=== PATIENT | female | born 1985 | race Caucasian/White ===

== ENCOUNTER 2016-04-08 20:48 | Emergency (ER) | payer MEDICAID ==
[~2016-04-08] VITALS: Ht 154.9 cm; Wt 85.7 kg
[~2016-04-08 20:48] MED LIST: DOXYCYCLINE; NORE5TAB6 PO
[2016-04-08 21:05] VITALS: BP 136/85; PULSE 84; RESP 18; TEMP 97.7; O2SAT 96
[2016-04-08] MEDS ORDERED: ONDANSETRON HCL 4 MG/2 ML VIAL IVP ONE (23:00)
[2016-04-08] MEDS ORDERED: KETOROLAC TROMETHAMINE 30 MG VIAL IVP ONE (23:00)
[2016-04-08] MEDS ORDERED: NACL 0.9% 1,000 ML IV ONE (23:00)
[2016-04-08 23:35] LABS: BILIRUBIN,URINE NEGATIVE (NEGATIVE); BLOOD, URINE NEGATIVE (NEGATIVE); CLARITY/URINE HAZY (CLEAR); COLOR,URINE YELLOW (YELLOW); GLUCOSE,URINE NEGATIVE (NEGATIVE); KETONES,URINE NEGATIVE (NEGATIVE); LEUKOCYTE ESTERASE ,URINE NEGATIVE (NEGATIVE); NITRITE, URINE NEGATIVE (NEGATIVE); PH,URINE 7.5 (5.0-8.0); PROTEIN URINE NEGATIVE (NEGATIVE); UROBILINOGEN,URINE 0.2 (0.2-1.0)
[2016-04-08 23:53] LABS: CALCIUM 9.3 mg/dL (8.4-11.0); CREATININE 0.72 mg/dL (0.55-1.30); POTASSIUM 3.7 mmol/L (3.5-5.1)
[2016-04-08 23:59] LABS: ALBUMIN 4.1 g/dL (3.4-4.8); TOTAL BILIRUBIN 0.3 mg/dL (0.0-1.0); TOTAL PROTEIN, SERUM 8.3 g/dL (6.4-8.3)
[2016-04-09 00:03] LABS: HEMATOCRIT 45.2 % (36-48); MEAN CORPUSCULAR HEMOGLOBIN 31 pg (27-31); MEAN CORPUSCULAR HGB CONC 33 % (32-36); MEAN CORPUSCULAR VOLUME 93 fL (79.0-98.0); NEUTROPHILS % (AUTO) 62.9 % (40.0-70.0); PLATELET COUNT (AUTO) 341 K/uL (130-430); RED BLOOD CELL COUNT(AUTO) 4.88 MIL/uL (4.2-6.2); RED CELL DISTRIBUTION WIDTH 13.5 % (9.0-15.0); WHITE BLOOD COUNT (AUTO) 11.9 K/uL (4.8-10.8)
[2016-04-09 00:04] LABS: BASOPHILS # (AUTO) 0.2 K/uL (0.0-0.2); EOSINOPHILS # (AUTO) 0.1 K/uL (0.0-0.4); EOSINOPHILS % (AUTO) 0.8 % (0.0-4.0); LYMPHOCYTES # (AUTO) 3.4 K/uL (1.0-5.5); LYMPHOCYTES % (AUTO) 28.9 % (20.5-51.5); MONOCYTES # (AUTO) 0.6 K/uL (0.0-1.0); MONOCYTES % (AUTO) 5.4 % (1.7-9.3); NEUTROPHILS # (AUTO) 7.6 K/uL (1.8-7.7)
[2016-04-09] MEDS ORDERED: DIPHENHYDRAMINE INJ 50 MG/ML VIAL IVP ONE (01:00)
[2016-04-09] MEDS ORDERED: MORPHINE 4 MG/ML INJ. SYRINGE IVP ONE (01:00)
[2016-04-09 01:20] VITALS: BP 133/78; PULSE 84; RESP 18; TEMP 97.9; O2SAT 98
== END 2016-04-09 01:20 | disposition home or self-care (01) ==
LOC: SED 20:48
DX: R10.11 Right upper quadrant pain (principal); F41.9 Anxiety disorder, unspecified
CPT/HCPCS: 36415; 76700; 80053; 81003; 83690; 85025; 96361; 96374; 96375; 99285; J1885; J2405; J7030; J1200; J2270

== ENCOUNTER 2017-09-10 09:09 | Emergency (ER) | payer MEDICAID ==
[~2017-09-10] VITALS: Ht 154.9 cm; Wt 90.7 kg
[~2017-09-10 09:09] MED LIST changes: -NORE5TAB6 PO
[2017-09-10 09:16] VITALS: BP_SYST 130
[2017-09-10] MEDS ORDERED: KETOROLAC TROMETHAMINE 60 MG/2 ML VIAL IM ONE (09:30)
[2017-09-10 09:40] LABS: BILIRUBIN,URINE NEGATIVE (NEGATIVE); BLOOD, URINE NEGATIVE (NEGATIVE); CLARITY/URINE CLEAR (CLEAR); COLOR,URINE YELLOW (YELLOW); GLUCOSE,URINE NEGATIVE (NEGATIVE); KETONES,URINE NEGATIVE (NEGATIVE); LEUKOCYTE ESTERASE ,URINE 1+ (NEGATIVE); NITRITE, URINE NEGATIVE (NEGATIVE); PROTEIN URINE NEGATIVE (NEGATIVE); UROBILINOGEN,URINE 0.2 (0.2-1.0)
[2017-09-10 09:48] LABS: RBC,URINE 0-3 /HPF (0-3)
[2017-09-10 09:49] LABS: BACTERIA,URINE FEW /HPF (None Seen); MUCUS,URINE None Seen /LPF (None Seen)
[2017-09-10 09:51] LABS: BASOPHILS # (AUTO) 0.1 K/uL (0.0-0.2); BASOPHILS % (AUTO) 0.6 % (0.0-2.0); CALCIUM 9.1 mg/dL (8.4-11.0); CREATININE 0.79 mg/dL (0.55-1.30); EOSINOPHILS # (AUTO) 0.1 K/uL (0.0-0.4); EOSINOPHILS % (AUTO) 1.1 % (0.0-4.0); HEMATOCRIT 41.3 % (36-48); HEMOGLOBIN 14.2 g/dL (12.0-16.0); LYMPHOCYTES % (AUTO) 19.7 % (20.5-51.5); MEAN CORPUSCULAR HEMOGLOBIN 31 pg (27-31); MEAN CORPUSCULAR HGB CONC 34 % (32-36); MEAN CORPUSCULAR VOLUME 91 fL (79.0-98.0); MONOCYTES # (AUTO) 0.5 K/uL (0.0-1.0); MONOCYTES % (AUTO) 5.1 % (1.7-9.3); NEUTROPHILS # (AUTO) 7.6 K/uL (1.8-7.7); NEUTROPHILS % (AUTO) 73.5 % (40.0-70.0); PLATELET COUNT (AUTO) 344 K/uL (130-430); POTASSIUM 4.2 mmol/L (3.5-5.1); RED BLOOD CELL COUNT(AUTO) 4.54 MIL/uL (4.2-6.2); RED CELL DISTRIBUTION WIDTH 13.7 % (9.0-15.0); WHITE BLOOD COUNT (AUTO) 10.3 K/uL (4.8-10.8)
[2017-09-10 09:55] LABS: ALBUMIN 3.6 g/dL (3.4-4.8); TOTAL BILIRUBIN 0.3 mg/dL (0.0-1.0)
[2017-09-10 10:21] VITALS: BP_SYST 133
== END 2017-09-10 10:17 | disposition home or self-care (01) ==
LOC: SED 09:09
DX: N39.0 Urinary tract infection, site not specified (principal); F41.9 Anxiety disorder, unspecified
CPT/HCPCS: 36415; 80053; 85025; 81000; 81025; 83690; 87086; 96372; 99284; J1885

== ENCOUNTER 2017-11-02 08:17 | Emergency (ER) | payer SELFPAY ==
[~2017-11-02] VITALS: Ht 154.9 cm; Wt 90.7 kg
[2017-11-02 08:17] VITALS: BP_SYST 143
[2017-11-02] MEDS ORDERED: KETOROLAC TROMETHAMINE 15 MG VIAL IM ONE (08:45)
[2017-11-02] MEDS ORDERED: traMADol HCL HCL 50 MG TABLET (ULTRAM) PO ONE (09:30)
[2017-11-02 09:36] LABS: BILIRUBIN,URINE NEGATIVE (NEGATIVE); BLOOD, URINE NEGATIVE (NEGATIVE); CLARITY/URINE HAZY (CLEAR); COLOR,URINE YELLOW (YELLOW); GLUCOSE,URINE NEGATIVE (NEGATIVE); KETONES,URINE NEGATIVE (NEGATIVE); LEUKOCYTE ESTERASE ,URINE 1+ (NEGATIVE); NITRITE, URINE NEGATIVE (NEGATIVE); PROTEIN URINE NEGATIVE (NEGATIVE); UROBILINOGEN,URINE 0.2 (0.2-1.0)
[2017-11-02 10:09] LABS: RBC,URINE 0-3 /HPF (0-3)
[2017-11-02 10:10] LABS: BACTERIA,URINE MODERATE /HPF (None Seen); MUCUS,URINE 1+ /LPF (None Seen)
[2017-11-02 10:40] VITALS: BP_SYST 143
== END 2017-11-02 10:39 | disposition home or self-care (01) ==
LOC: SED 08:17
DX: N39.0 Urinary tract infection, site not specified (principal); D25.9 Leiomyoma of uterus, unspecified; F41.9 Anxiety disorder, unspecified; Z87.42 Personal history of other diseases of the female genital tract
CPT/HCPCS: 76830; 76857; 81000; 81025; 87086; 96372; 99285; J1885

== ENCOUNTER 2018-04-06 18:05 | Emergency (ER) | payer SELFPAY ==
[~2018-04-06] VITALS: Ht 154.9 cm; Wt 86.2 kg
[2018-04-06 18:13] VITALS: BP_SYST 147
[2018-04-06 18:33] LABS: BILIRUBIN,URINE NEGATIVE (NEGATIVE); BLOOD, URINE NEGATIVE (NEGATIVE); CLARITY/URINE CLEAR (CLEAR); COLOR,URINE YELLOW (YELLOW); GLUCOSE,URINE NEGATIVE (NEGATIVE); KETONES,URINE 1+ (NEGATIVE); LEUKOCYTE ESTERASE ,URINE TRACE (NEGATIVE); NITRITE, URINE NEGATIVE (NEGATIVE); PROTEIN URINE NEGATIVE (NEGATIVE); UROBILINOGEN,URINE 0.2 (0.2-1.0)
[2018-04-06 18:41] LABS: BACTERIA,URINE FEW /HPF (None Seen); MUCUS,URINE 1+ /LPF (None Seen); RBC,URINE 0-3 /HPF (0-3)
[2018-04-06] MEDS ORDERED: KETOROLAC TROMETHAMINE 30 MG VIAL IM ONE (20:15)
[2018-04-06 21:28] VITALS: BP_SYST 132
== END 2018-04-06 21:28 | disposition home or self-care (01) ==
LOC: SED 18:05
DX: S20.212A Contusion of left front wall of thorax, initial encounter (principal); F41.9 Anxiety disorder, unspecified; R03.0 Elevated blood-pressure reading, without diagnosis of hypertension; X58.XXXA Exposure to other specified factors, initial encounter; Y93.89 Activity, other specified; Y92.89 Other specified places as the place of occurrence of the external cause; Y99.8 Other external cause status
CPT/HCPCS: 36415; 71100; 71250; 81000; 81025; 85379; 87086; 96372; 99284; J1885

== ENCOUNTER 2018-05-02 12:16 | Emergency (ER) | payer SELFPAY ==
[~2018-05-02] VITALS: Ht 154.9 cm; Wt 88.0 kg
[2018-05-02 12:21] VITALS: BP_SYST 146
--- NOTE | 2018-05-02 12:39 | NUR ---
Patient to ER bed 1 to gown for evaluation. Side rails up. Report given to Jm AN.
--- NOTE | 2018-05-02 12:40 | NUR ---
Pt is here for c/o feeling "something stuck" in back of throat since Tuesday. Pt is able to swallow water, no throat swelling noted, back of throat has mild redness, no exudate noted. Pt denied fever or any other symptoms, pain is about 4-5/10 per pt.
--- NOTE | 2018-05-02 12:41 | NUR ---
at bedside to assess pt.
[2018-05-02] MEDS ORDERED: MAG HYDROX/AL HYDROX/SIMETH 30 ML, BELLADONNA ALKALOIDS/PHENOBARB 10 ML, LIDOCAINE VISC... PO ONE ×3 (13:45)
[2018-05-02] MEDS ORDERED: DEXAMETHASONE SOD PHOSPHATE 10 MG/ML VIAL IM ONE (14:00)
--- NOTE | 2018-05-02 14:00 | NUR ---
Pt was given medication, states it is not helping her, O2 sat RA is 97 %, respirations even and unlabored. THERAPEUTIC RECREATION LEADER aware.
[2018-05-02 15:20] VITALS: BP_SYST 117
--- NOTE | 2018-05-02 15:20 | NUR ---
Patient given written and verbal discharge instructions and verbalizes understanding. ER MD discussed with patient the results and treatment provided. Patient in stable condition. ID arm band removed. Rx of Prednisone and motrin given. Patient educated on pain management and to follow up with PMD. Opportunity for questions provided and answered. Medication side effect fact sheet provided.
== END 2018-05-02 15:20 | disposition home or self-care (01) ==
LOC: SED 12:16
DX: J02.8 Acute pharyngitis due to other specified organisms (principal); B97.89 Other viral agents as the cause of diseases classified elsewhere; R03.0 Elevated blood-pressure reading, without diagnosis of hypertension; F45.8 Other somatoform disorders; F41.9 Anxiety disorder, unspecified
CPT/HCPCS: 36415; 70360; 86403; 87081; 96372; 99284; J1100; J2001

== ENCOUNTER → 2020-10-24 | Emergency (ER) | payer OTHER ==
[~2020-10-24] VITALS: Ht 154.9 cm; Wt 101.6 kg
[2020-10-24 11:35] VITALS: BP_SYST 140
--- NOTE | 2020-10-24 11:35 | NUR ---
AFTER BEING TRIAGED, PT ASKED ABOUT COVID PTS AND DECIDED SHE DID NOT WANT TO BE SEEN. EXPLAINED THAT COVID PTS ARE EVERYWHERE, PT DECIDED TO LEAVE WITHOUT BEING SEEN
== END | disposition left against medical advice (07) ==
LOC: SED 11:35
DX: N64.4 Mastodynia (principal); Z53.21 Procedure and treatment not carried out due to patient leaving prior to being seen by health care provider

== ENCOUNTER 2021-04-13 12:14 | Emergency (ER) | payer OTHER, SELFPAY ==
[~2021-04-13] VITALS: Ht 154.9 cm; Wt 99.8 kg
[2021-04-13 12:50] VITALS: BP_SYST 147
[2021-04-13] MEDS ORDERED: MAG HYDROX/AL HYDROX/SIMETH 30 ML, DICYCLOMINE HCL 20 MG, LIDOCAINE VISCOUS 2% 15ML (PO... PO ONE ×3 (13:45)
--- NOTE | 2021-04-13 13:56 | NUR ---
Pt in Bed 5 gowned with at bedside. pt is A&Ox4. Ambulatory with steady gait. No chest pain and no sob. Pt c/o LUQ pain since New Years. Rates pain 6/10 and does not radiate. Scheduled medications given. Ambulatory with steady gait.
[2021-04-13 14:27] LABS: BILIRUBIN,URINE NEGATIVE (NEGATIVE); BLOOD, URINE NEGATIVE (NEGATIVE); COLOR,URINE YELLOW (YELLOW); GLUCOSE,URINE NEGATIVE (NEGATIVE); KETONES,URINE NEGATIVE (NEGATIVE); LEUKOCYTE ESTERASE ,URINE NEGATIVE (NEGATIVE); NITRITE, URINE NEGATIVE (NEGATIVE); PROTEIN URINE NEGATIVE (NEGATIVE)
[2021-04-13 14:34] LABS: CLARITY/URINE SLIGHTLY HAZY (CLEAR)
[2021-04-13 15:05] LABS: BASOPHILS # (AUTO) 0.1 K/uL (0.0-0.2); BASOPHILS % (AUTO) 0.9 % (0.0-2.0); EOSINOPHILS # (AUTO) 0.1 K/uL (0.0-0.4); EOSINOPHILS % (AUTO) 1.5 % (0.0-4.0); HEMATOCRIT 35.2 % (36-48); LYMPHOCYTES # (AUTO) 1.7 K/uL (1.0-5.5); MEAN CORPUSCULAR HEMOGLOBIN 24 pg (27-31); MEAN CORPUSCULAR HGB CONC 31 % (32-36); MEAN CORPUSCULAR VOLUME 79 fL (79.0-98.0); MONOCYTES # (AUTO) 0.4 K/uL (0.0-1.0); MONOCYTES % (AUTO) 5.1 % (1.7-9.3); NEUTROPHILS # (AUTO) 5.6 K/uL (1.8-7.7); NEUTROPHILS % (AUTO) 71.5 % (40.0-70.0); PLATELET COUNT (AUTO) 315 K/uL (130-430); RED BLOOD CELL COUNT(AUTO) 4.48 MIL/uL (4.2-6.2); RED CELL DISTRIBUTION WIDTH 21.8 % (9.0-15.0); WHITE BLOOD COUNT (AUTO) 7.9 K/uL (4.8-10.8)
--- NOTE | 2021-04-13 15:17 | NUR ---
Pt moved to Hallway 1. Pt has no c/o. A&Ox4. Ambulatory with steady gait. VSS.
[2021-04-13 15:20] LABS: CALCIUM 9.2 mg/dL (8.4-11.0); CREATININE 0.5 mg/dL (0.55-1.30)
[2021-04-13 15:34] LABS: ALBUMIN 3.9 g/dL (3.4-4.8); TOTAL BILIRUBIN 0.3 mg/dL (0.0-1.0)
--- NOTE | 2021-04-13 16:00 | NUR ---
ER physician assessing pt.
[2021-04-13] MEDS ORDERED: MAG-AL HYDROX/SIMETH 30 ML UDC PO ONE (17:00)
[2021-04-13] MEDS ORDERED: FAMOTIDINE 20 MG TABLET PO ONE (17:00)
[2021-04-13] MEDS ORDERED: ANT30 PO (17:07)
[2021-04-13] MEDS ORDERED: FAMO40TA7 PO (17:07)
[2021-04-13 17:21] VITALS: BP_SYST 132
--- NOTE | 2021-04-13 17:22 | NUR ---
Patient given written and verbal discharge instructions and verbalizes understanding. ER MD discussed with patient the results and treatment provided. Patient in stable condition. ID arm band removed. Rx of Famotidine and MAAlox given. Patient educated on pain management and to follow up with PMD. Pain Scale . Opportunity for questions provided and answered. Medication side effect fact sheet provided.
== END 2021-04-13 17:21 | disposition home or self-care (01) ==
LOC: SED 12:14
DX: R10.12 Left upper quadrant pain (principal); Z79.899 Other long term (current) drug therapy
CPT/HCPCS: 36415; 80053; 81003; 81025; 83690; 84702; 85025; 99284; J2001

== ENCOUNTER 2021-11-28 07:44 | Emergency (ER) | payer OTHER ==
[~2021-11-28] VITALS: Ht 154.9 cm; Wt 80.7 kg
[~2021-11-28 07:44] MED LIST changes: +ANT30 PO; +FAMO40TA7 PO; +HYDR-3917 PO; +IBUP-1969 PO
[2021-11-28 07:47] VITALS: BP_SYST 118
--- NOTE | 2021-11-28 07:55 | NUR ---
Placed in room 4 . Placed on monitor tech, blood pressure machine and pulse oximeter. To gown for exam. Side rails up. Report given to NATALIYA GTZ.
--- NOTE | 2021-11-28 08:27 | NUR ---
AT THE BEDSIDE WITH DR LONG FOR RECTAL EXAMINATION, PT TOLERATED WELL
[2021-11-28] MEDS ORDERED: NACL 0.9% 1,000 ML IV ONE (08:30)
[2021-11-28] MEDS ORDERED: KETOROLAC TROMETHAMINE 30 MG VIAL IVP ONE (08:30)
[2021-11-28 09:21] LABS: BASOPHILS # (AUTO) 0.1 K/uL (0.0-0.2); BASOPHILS % (AUTO) 0.7 % (0.0-2.0); EOSINOPHILS # (AUTO) 0.2 K/uL (0.0-0.4); HEMATOCRIT 27.5 % (36-48); LYMPHOCYTES # (AUTO) 1.6 K/uL (1.0-5.5); LYMPHOCYTES % (AUTO) 19.6 % (20.5-51.5); MEAN CORPUSCULAR VOLUME 67 fL (79.0-98.0); MONOCYTES # (AUTO) 0.4 K/uL (0.0-1.0); NEUTROPHILS # (AUTO) 6.1 K/uL (1.8-7.7); NEUTROPHILS % (AUTO) 72.7 % (40.0-70.0); PLATELET COUNT (AUTO) 341 K/uL (130-430); RED BLOOD CELL COUNT(AUTO) 4.13 MIL/uL (4.2-6.2); RED CELL DISTRIBUTION WIDTH 18.2 % (9.0-15.0); WHITE BLOOD COUNT (AUTO) 8.3 K/uL (4.8-10.8)
[2021-11-28 09:36] LABS: CALCIUM 9.2 mg/dL (8.4-11.0); CREATININE 0.57 mg/dL (0.55-1.30); POTASSIUM 3.7 mmol/L (3.5-5.1)
[2021-11-28 09:41] LABS: ALBUMIN 3.3 g/dL (3.4-4.8); TOTAL BILIRUBIN 0.4 mg/dL (0.0-1.0)
[2021-11-28] MEDS ORDERED: MAGNESIUM CITRATE 300 ML ORAL SOLUTION PO ONE (11:00)
[2021-11-28] MEDS ORDERED: TRAM50TA2 PO (12:15)
[2021-11-28] MEDS ORDERED: LACT10SO6 PO (12:17)
--- NOTE | 2021-11-28 12:22 | NUR ---
Patient was seen by physician and all meds were given. Patient with IV fluids given and medications afterward. Patient stable and awaiting discharge at this time.
--- NOTE | 2021-11-28 12:31 | NUR ---
Patient given written and verbal discharge instructions and verbalizes understanding. ER MD discussed with patient the results and treatment provided. Patient in stable condition. ID arm band removed. IV catheter removed intact and dressing applied, no active bleeding. Rx of given. Patient educated on pain management and to follow up with PMD. Pain Scale 0/10. Opportunity for questions provided and answered. Medication side effect fact sheet provided.
[2021-11-28 13:01] VITALS: BP_SYST 130
--- NOTE | 2021-11-28 13:03 | NUR ---
Patient given written and verbal discharge instructions and verbalizes understanding. ER MD discussed with patient the results and treatment provided. Patient in stable condition. ID arm band removed. IV catheter removed intact and dressing applied, no active bleeding. Rx of lactulose and tramadol given. Patient educated on pain management and to follow up with PMD. Pain Scale. Opportunity for questions provided and answered. Medication side effect fact sheet provided.
== END 2021-11-28 13:01 | disposition home or self-care (01) ==
LOC: SED 07:44
DX: K62.5 Hemorrhage of anus and rectum (principal); K59.00 Constipation, unspecified; Z79.899 Other long term (current) drug therapy
CPT/HCPCS: 99284; 74176; 96374; 96361; 80053; 85025; 36415; 76376; 81025; J1885; J7030

== ENCOUNTER 2022-07-17 13:26 | Emergency (ER) | payer MEDICAID, OTHER ==
[~2022-07-17] VITALS: Ht 154.9 cm; Wt 79.8 kg
[~2022-07-17 13:26] MED LIST changes: +LACT10SO6 PO; +TRAM50TA2 PO
[2022-07-17 13:33] VITALS: BP_SYST 135
--- NOTE | 2022-07-17 13:39 | NUR ---
PT BIB SELF WITH C/O RIGHT 5TH DIGIT PAIN WITH ECCYMOSIS AND SWELLING. PT HAS A DRESSER DRAWER DROPPED ON HER FOOT. PT TRIAGED AND PLACED IN ROOM 8, REPORT GIVEN TO NATALIYA CHIRINOS.
[2022-07-17] MEDS ORDERED: KETOROLAC TROMETHAMINE 60 MG/2 ML VIAL IM ONE (13:45)
--- NOTE | 2022-07-17 13:45 | NUR ---
MD DR ESTES AT BEDSIDE
[2022-07-17] MEDS ORDERED: TRAM50TA2 PO (14:42)
[2022-07-17] MEDS ORDERED: IBUP-1969 PO (14:42)
[2022-07-17 15:10] VITALS: BP_SYST 135
--- NOTE | 2022-07-17 15:12 | NUR ---
Patient given written and verbal discharge instructions and verbalizes understanding. ER MD DR ESTES discussed with patient the results and treatment provided. Patient in stable condition. ID arm band removed. Rx of TRAMADOL AND MOTRIN given. Patient educated on pain management and to follow up with PMD. Pain Scale 2/10. Opportunity for questions provided and answered. Medication side effect fact sheet provided.
== END 2022-07-17 15:12 | disposition home or self-care (01) ==
LOC: SED 13:26
DX: S92.422A Displaced fracture of distal phalanx of left great toe, initial encounter for closed fracture (principal); Z79.899 Other long term (current) drug therapy; W22.8XXA Striking against or struck by other objects, initial encounter; Y93.89 Activity, other specified; Y92.89 Other specified places as the place of occurrence of the external cause; Y99.8 Other external cause status
CPT/HCPCS: 99283; 73660; 96372; J1885

== ENCOUNTER 2022-07-25 10:27 | Emergency (ER) | payer MEDICAID ==
[~2022-07-25] VITALS: Ht 154.9 cm; Wt 79.8 kg
[2022-07-25 10:35] VITALS: BP_SYST 146
[2022-07-25] MEDS ORDERED: KETOROLAC TROMETHAMINE 30 MG VIAL IM ONE (10:45)
[2022-07-25 11:10] LABS: BASOPHILS # (AUTO) 0.1 K/uL (0.0-0.2); BASOPHILS % (AUTO) 0.9 % (0.0-2.0); EOSINOPHILS # (AUTO) 0.1 K/uL (0.0-0.4); EOSINOPHILS % (AUTO) 1.8 % (0.0-4.0); HEMATOCRIT 30.2 % (36-48); HEMOGLOBIN 9.2 g/dL (12.0-16.0); LYMPHOCYTES % (AUTO) 25.6 % (20.5-51.5); MEAN CORPUSCULAR HEMOGLOBIN 22 pg (27-31); MEAN CORPUSCULAR HGB CONC 31 % (32-36); MEAN CORPUSCULAR VOLUME 72 fL (79.0-98.0); MONOCYTES # (AUTO) 0.4 K/uL (0.0-1.0); MONOCYTES % (AUTO) 5.4 % (1.7-9.3); NEUTROPHILS # (AUTO) 5.2 K/uL (1.8-7.7); NEUTROPHILS % (AUTO) 66.3 % (40.0-70.0); PLATELET COUNT (AUTO) 384 K/uL (130-430); RED BLOOD CELL COUNT(AUTO) 4.18 MIL/uL (4.2-6.2); RED CELL DISTRIBUTION WIDTH 18.7 % (9.0-15.0); WHITE BLOOD COUNT (AUTO) 7.8 K/uL (4.8-10.8)
[2022-07-25 11:31] LABS: CALCIUM 8.2 mg/dL (8.4-11.0); CREATININE 0.67 mg/dL (0.55-1.30)
[2022-07-25 11:36] LABS: ALBUMIN 3.5 g/dL (3.4-4.8); TOTAL BILIRUBIN 0.2 mg/dL (0.0-1.0)
[2022-07-25 13:10] LABS: CLARITY/URINE CLEAR (CLEAR); COLOR,URINE YELLOW (YELLOW); GLUCOSE,URINE NEGATIVE (NEGATIVE); KETONES,URINE NEGATIVE (NEGATIVE); PROTEIN URINE NEGATIVE (NEGATIVE)
[2022-07-25 13:11] LABS: BILIRUBIN,URINE NEGATIVE (NEGATIVE); BLOOD, URINE NEGATIVE (NEGATIVE); LEUKOCYTE ESTERASE ,URINE NEGATIVE (NEGATIVE); NITRITE, URINE NEGATIVE (NEGATIVE); UROBILINOGEN,URINE 0.2 (0.2-1.0)
[2022-07-25] MEDS ORDERED: IBUP-1969 PO (13:21)
[2022-07-25 13:42] VITALS: BP_SYST 118
== END 2022-07-25 13:40 | disposition home or self-care (01) ==
LOC: SED 10:27
DX: D25.9 Leiomyoma of uterus, unspecified (principal); R10.2 Pelvic and perineal pain; N88.8 Other specified noninflammatory disorders of cervix uteri; D50.9 Iron deficiency anemia, unspecified; R68.83 Chills (without fever); Z79.899 Other long term (current) drug therapy
CPT/HCPCS: 36415; 76856-TC; 80053; 81003; 81025; 85025; 96372; 99285

== ENCOUNTER 2022-08-24 12:10 | Emergency (ER) | payer MEDICAID ==
[~2022-08-24] VITALS: Ht 154.9 cm; Wt 75.7 kg
[2022-08-24 12:31] VITALS: BP_SYST 149
[2022-08-24] MEDS ORDERED: KETOROLAC TROMETHAMINE 60 MG/2 ML VIAL IM ONE (12:45)
[2022-08-24 13:27] LABS: BILIRUBIN,URINE NEGATIVE (NEGATIVE); BLOOD, URINE 3+ (NEGATIVE); CLARITY/URINE TURBID (CLEAR); COLOR,URINE YELLOW (YELLOW); GLUCOSE,URINE NEGATIVE (NEGATIVE); KETONES,URINE NEGATIVE (NEGATIVE); LEUKOCYTE ESTERASE ,URINE NEGATIVE (NEGATIVE); NITRITE, URINE NEGATIVE (NEGATIVE); PH,URINE 6.5 (5.0-8.0); PROTEIN URINE 2+ (NEGATIVE); UROBILINOGEN,URINE 0.2 (0.2-1.0)
[2022-08-24 13:34] LABS: BACTERIA,URINE FEW /HPF (None Seen); RBC,URINE 80-100 /HPF (0-3); WBC,URINE 0-3 /HPF (0-3)
[2022-08-24] MEDS ORDERED: MORPHINE 4 MG INJ. 4 MG/ML VIAL IM ONE (13:45)
[2022-08-24] MEDS ORDERED: KETAMINE HCL IN 0.9 % NACL 50 MG/5 ML SYRINGE IV ONE (13:45)
[2022-08-24] MEDS ORDERED: HYDR-3917 PO (13:57)
[2022-08-24] MEDS ORDERED: IBUP-1969 PO (14:12)
[2022-08-24 14:46] VITALS: BP_SYST 133
== END 2022-08-24 14:46 | disposition home or self-care (01) ==
LOC: SED 12:10
DX: D21.9 Benign neoplasm of connective and other soft tissue, unspecified (principal); R10.2 Pelvic and perineal pain; R10.30 Lower abdominal pain, unspecified; Z79.899 Other long term (current) drug therapy
CPT/HCPCS: 99284; 81000; 81025; 96372; J1885; J2270

== ENCOUNTER 2022-09-15 10:45 | Emergency (ER) | payer OTHER, MEDICAID ==
[~2022-09-15] VITALS: Ht 167.6 cm; Wt 72.6 kg
[2022-09-15 10:56] VITALS: BP_SYST 133; PULSE 85; RESP 20; TEMP 98.3; O2SAT 98
--- NOTE | 2022-09-15 11:00 | NUR ---
Pt brought by self, A&Ox4, pt presents to ER with headache and abrassions on R leg , pt states she was catching her truck since it went down the driveway, hit head and R leg, poss KO, skin pink and warm,cap refill <3, VSS
--- NOTE | 2022-09-15 11:20 | NUR ---
Dr Vasques evaluating patient at bedside
[2022-09-15] MEDS ORDERED: TRAM50TA2 PO (13:17)
[2022-09-15] MEDS ORDERED: IBUP-1969 PO (13:17)
[2022-09-15 13:36] VITALS: BP_SYST 133; PULSE 85; RESP 20; TEMP 98.3; O2SAT 98
--- NOTE | 2022-09-15 13:37 | NUR ---
Patient given written and verbal discharge instructions and verbalizes understanding. ER MD discussed with patient the results and treatment provided. Patient in stable condition. ID arm band removed. Rx of IBUPROFEN AND TRAMADOL given. Patient educated on pain management and to follow up with PMD. Pain Scale 0/10. Opportunity for questions provided and answered. Medication side effect fact sheet provided.
== END 2022-09-15 13:37 | disposition home or self-care (01) ==
LOC: SED 10:45
DX: S33.5XXA Sprain of ligaments of lumbar spine, initial encounter (principal); S00.03XA Contusion of scalp, initial encounter; Z79.899 Other long term (current) drug therapy; W19.XXXA Unspecified fall, initial encounter; Y93.89 Activity, other specified; Y92.89 Other specified places as the place of occurrence of the external cause; Y99.8 Other external cause status
CPT/HCPCS: 70450-TC; 72100-TC; 76376; 81025; 99284

== ENCOUNTER 2024-01-12 18:49 | Emergency (ER) | payer MEDICAID ==
[~2024-01-12] VITALS: Ht 154.9 cm; Wt 89.8 kg
[~2024-01-12 18:49] MED LIST changes: +CEPH-548 PO
[2024-01-12 19:16] VITALS: BP_SYST 137; PULSE 90; RESP 18; TEMP 97.3; O2SAT 96
[2024-01-12] MEDS: MAG HYDROX/AL HYDROX/SIMETH 30 ML, DICYCLOMINE HCL 20 MG, LIDOCAINE VISCOUS 2% 15ML (PO... PO ONE (19:31)
[2024-01-12] MEDS: PANTOPRAZOLE SODIUM 40 MG TAB PO ONE (19:31)
[2024-01-12 19:32] LABS: BILIRUBIN,URINE NEGATIVE (NEGATIVE); BLOOD, URINE 3+ (NEGATIVE); COLOR,URINE YELLOW (YELLOW); GLUCOSE,URINE NEGATIVE (NEGATIVE); KETONES,URINE NEGATIVE (NEGATIVE); LEUKOCYTE ESTERASE ,URINE NEGATIVE (NEGATIVE); NITRITE, URINE NEGATIVE (NEGATIVE); PROTEIN URINE TRACE (NEGATIVE); UROBILINOGEN,URINE 0.2 (0.2-1.0)
[2024-01-12 19:39] LABS: CLARITY/URINE SLIGHTLY HAZY (CLEAR)
[2024-01-12 19:40] LABS: BACTERIA,URINE FEW /HPF (None Seen); RBC,URINE 20-50 /HPF (0-3); WBC,URINE 0-3 /HPF (0-3)
[2024-01-12 19:41] LABS: MUCUS,URINE None Seen /LPF (None Seen)
[2024-01-12 19:41] LABS: BASOPHILS # (AUTO) 0.1 K/uL (0.0-0.2); EOSINOPHILS # (AUTO) 0.3 K/uL (0.0-0.4); EOSINOPHILS % (AUTO) 3.6 % (0.0-4.0); HEMATOCRIT 31.1 % (36-48); HEMOGLOBIN 9.3 g/dL (12.0-16.0); LYMPHOCYTES % (AUTO) 22.9 % (20.5-51.5); MEAN CORPUSCULAR HEMOGLOBIN 19 pg (27-31); MEAN CORPUSCULAR HGB CONC 30 % (32-36); MEAN CORPUSCULAR VOLUME 64 fL (79.0-98.0); MONOCYTES # (AUTO) 0.6 K/uL (0.0-1.0); MONOCYTES % (AUTO) 6.3 % (1.7-9.3); NEUTROPHILS # (AUTO) 5.8 K/uL (1.8-7.7); NEUTROPHILS % (AUTO) 66.2 % (40.0-70.0); PLATELET COUNT (AUTO) 394 K/uL (130-430); RED BLOOD CELL COUNT(AUTO) 4.87 MIL/uL (4.2-6.2); RED CELL DISTRIBUTION WIDTH 20.3 % (9.0-15.0); WHITE BLOOD COUNT (AUTO) 8.8 K/uL (4.8-10.8)
[2024-01-12 19:43] LABS: BARBITURATE, URINE NEGATIVE (NEG <=200); BENZODIAZEPINE, URINE NEGATIVE (NEG <=150); CANNABINOID, URINE NEGATIVE (NEG <=50); COCAINE, URINE NEGATIVE (NEG <=150); METHAMPHETAMINES SCREEN,URINE POSITIVE (NEG <=500); OPIATE, URINE NEGATIVE (NEG <=100); PHENCYCLIDINE SCREEN,URINE NEGATIVE (NEG <=25); UR TRICYCLIC ANTIDEPRESSANTS NEGATIVE (NEG <=300); URINE AMPHETAMINE POSITIVE (NEG <=500); URINE METHADONE NEGATIVE (NEG <=200); URINE OXYCODONE SCREEN NEGATIVE (NEG <=100)
[2024-01-12 19:50] LABS: SERUM HCG (QUALITATIVE) NEGATIVE (NEGATIVE)
[2024-01-12 19:55] LABS: ANISOCYTOSIS 2+; HYPOCHROMASIA 1+; OVALOCYTES FEW
[2024-01-12 19:56] LABS: ALANINE AMINOTRANSFERASE 50 U/L (12-78); ALBUMIN 3.6 g/dL (3.4-4.8); ANION GAP 8 (5-15); BILIRUBIN,DIRECT 0.1 mg/dL (0.0-0.3); CALCIUM 8.8 mg/dL (8.4-11.0); CARBON DIOXIDE 30 mmol/L (23-29); CHLORIDE 104 mmol/L (98-107); CREATININE 0.53 mg/dL (0.55-1.30); GFR AFRICAN AMERICAN 167 mL/min (>90); GFR NON AFRICAN-AMERICAN 138 mL/min (>90); GLUCOSE 118 mg/dL (74-106); LIPASE 79 U/L (16-77); POTASSIUM 3.8 mmol/L (3.5-5.1); SODIUM SERUM 142 mmol/L (136-145); TOTAL BILIRUBIN 0.3 mg/dL (0.0-1.0); TOTAL PROTEIN, SERUM 8.2 g/dL (6.4-8.3); UREA NITROGEN, BLOOD 10 mg/dL (8-21)
[2024-01-12 19:59] LABS: ALCOHOL, BLOOD < 3 mg/dL (<10)
[2024-01-12] MEDS ORDERED: PHEN16.236 PO (20:24)
[2024-01-12] MEDS ORDERED: PANT20TA2 PO (20:24)
[2024-01-12] MEDS ORDERED: DICY10SO PO (20:26)
[2024-01-12 20:32] VITALS: RESP 18; TEMP 98.6
[2024-01-12 20:35] VITALS: BP_SYST 151; PULSE 91; O2SAT 95
[2024-01-12 21:45] LABS: ASPARTATE AMINOTRANSFERASE 48 U/L (10-37)
== END 2024-01-12 20:35 | disposition home or self-care (01) ==
LOC: SED 18:49
DX: K29.70 Gastritis, unspecified, without bleeding (principal); R10.13 Epigastric pain; F15.10 Other stimulant abuse, uncomplicated; F41.9 Anxiety disorder, unspecified; Z87.19 Personal history of other diseases of the digestive system; Z79.899 Other long term (current) drug therapy
CPT/HCPCS: 99284; 80307; 80076; 80048; 84703; 83690; 85025; 36415; 81025; 81001; G0482; J2003; 81000; 81015